=== PATIENT | male | born 2005 | race African-American/Black ===

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

== ENCOUNTER 2024-11-30 07:57 | Emergency (ER) | payer OTHER, SELFPAY ==
[2024-11-30] MEDS ORDERED: Ketorolac Tromethamine 30 MG (1 mL) VIAL ONE (08:37)
[2024-11-30 08:48] LABS: Hematocrit 44.8 % (42.0-52.0); Hemoglobin 14.6 g/dL (14.0-18.0); Mean Corpuscular Hemoglobin 29.0 pg (27.0-31.0); Mean Corpuscular Volume 88.9 fL (78.0-98.0); Platelet Count 238 10x3/uL (130-400); Red Blood Cell (RBC) Count 5.04 mill/uL (4.70-6.10); White Blood Cell (WBC) Count 8.77 10x3/uL (4.8-10.8)
[2024-11-30 09:03] LABS: ALT (SGPT) 18 U/L (Less than 45); AST (SGOT) 27 U/L (11-34); Albumin 4.7 g/dL (3.1-4.5); Alkaline Phosphatase 83 U/L (40-110); Anion Gap 17 mmol/L (10-20); BUN (Urea Nitrogen) 10 mg/dL (8.9-20.6); Bilirubin, Total 0.7 mg/dL (0.3-1.2); Calc. Creatinine Clearance 0 mL/min (70-130); Calcium 9.8 mg/dL (7.8-10.44); Carbon Dioxide 24 mmol/L (22-29); Chloride 103 mmol/L (98-107); Globulin 3.6 g/dL (2.4-3.5); Glucose 103 mg/dL (70-105); Potassium 4.1 mmol/L (3.5-5.1); Sodium 140 mmol/L (136-145)
[2024-11-30 09:26] LABS: Platelet Adequacy Comment Platelets Normal
[2024-11-30 10:04] LABS: Bacteria/HPF None Seen HPF (None Seen); CAUTI Indications for Culture Pelvic or flank pain; Glucose, Urine (Dipstick) Normal (Negative); Leukocyte 250 Leu/uL (Negative); Protein, Urine (Dipstick) Negative (Neg-Trace); RBC/HPF None Seen HPF (0-3); Specific Gravity, Urine Greater than 1.050 (1.002-1.036); WBC/HPF 21-50 HPF (0-3)
[2024-11-30 10:05] LABS: Urine Culture Reflex Yes Yes
[2024-11-30] MEDS ORDERED: Lidocaine 1% PF 5 ML VIAL ONE (10:32)
[2024-11-30] MEDS ORDERED: cefTRIAXone (ROCEPHIN) 500 MG VIAL ONE (10:50)
[2024-11-30] MEDS ORDERED: Iopamidol 370 76% 100 ML VIAL ONE (12:10)
[2024-12-01 06:00] LABS: Chlam.trachomatis by PCR,Urine Not Detected (NotDetected); GC N.gonorrhoeae PCR,UrineVOID Not Detected (NotDetected)
== END 2024-11-30 11:28 | disposition home or self-care (01) ==
LOC: ERS 07:57
DX: N49.2 Inflammatory disorders of scrotum (principal); F17.290 Nicotine dependence, other tobacco product, uncomplicated
CPT/HCPCS: 54700; 72193; 76870; 80053; 81001; 85025; 86141; 87086; 87491; 87591; 93976; 96365; 96375; J0696; J1885; Q9967